=== PATIENT | female | born 1935 | race Caucasian/White ===

== ENCOUNTER 2021-06-10 17:05 | Emergency (ER) | payer MEDICARE, SELFPAY ==
--- NOTE | 2021-06-10 | ECG_ITS ---
Test Reason : CHEST TIGHTNESS Blood Pressure : / mmHG Vent. Rate : 069 BPM Atrial Rate : 069 BPM P-R Int : 162 ms QRS Dur : 128 ms QT Int : 450 ms P-R-T Axes : 060 005 115 degrees QTc Int : 482 ms Sinus rhythm with occasional Premature ventricular complexes Left bundle branch block Abnormal ECG No previous ECGs available Referred By: Generic ED Physician Electronically Signed By:Jose Patton
--- NOTE | ~2021-06-10 | XR_ITS ---
EXAMINATION: XR CHEST CLINICAL INFORMATION: Chest tightness COMPARISON: None TECHNIQUE: Frontal view of the chest was obtained. 6:33 PM FINDINGS: No significant abnormality is noted involving the heart, lungs, mediastinum, bony thorax or soft tissues. XR/XR chest 1V IMPRESSION: Unremarkable examination.
[2021-06-10 18:00] VITALS: BP 187/85; PULSE 72; RESP 18; TEMP 37.1; O2SAT 98; BMI 19.5
[2021-06-10 18:25] LABS: MANUAL DIFF FLAG NO
[2021-06-10 18:26] LABS: Basophils Percent Auto 0.2 % (0-2); Hematocrit 38.3 % (37.0-47.0); Hemoglobin 12.8 g/dl (12.0-16.0); Imm Gran Abs Auto 0.05 X10*3/uL (0.00-0.03); Imm Gran Pct Auto 0.6 % (0.0-0.4); Lymphocytes Absolute Auto 1.2 X10*3/uL (1.2-4.9); Lymphocytes Percent Auto 13.6 % (20-40); Mean Corpuscular HGB Conc 33.4 g/dl (31.0-35.0); Mean Corpuscular Hemoglobin 32.9 pg (27.0-33.0); Mean Corpuscular Volume 98.5 fL (80.0-98.0); Monocytes Absolute Auto 0.8 X10*3/uL (0.1-1.2); Monocytes Percent Auto 9.7 % (2-11); Neutrophils Absolute Auto 6.5 x10*3/uL (2.0-8.3); Neutrophils Percent Auto 75.9 % (45-73); Platelet Count 242 X10*3/uL (160-400); Red Blood Count 3.89 X10*6/uL (4.20-5.50); White Blood Count 8.6 X10*3/uL (4.8-10.8)
[2021-06-10 18:36] LABS: COVID-19 Test Positive (Negative)
[2021-06-10 18:40] LABS: Anion Gap 14 (12-20); Blood Urea Nitrogen 12 mg/dL (9-16); Calcium 9.6 mg/dL (8.4-10.2); Carbon Dioxide 24 mmol/L (22-29); Chloride 104 mmol/L (96-108); Creatinine Clr Calc Pharmacy 43.5; Estimated Glomerular Filt Rate > 60; Glucose Random 105 mg/dL (60-115); Potassium 4.5 mmol/L (3.3-5.1); Sodium 137 mmol/L (135-145)
--- NOTE | 2021-06-10 22:27 | ED.ASTHMA ---
HPI - Asthma General Chief Complaint: Asthma Stated Complaint: diff breathing Time Seen by Provider: 06/10/21 21:38 Source: patient Mode of arrival: ambulatory History of Present Illness HPI Narrative: This is an 85-year-old female with a history of asthma and MS who is currently living at [facility] and arrives with complaints of SOB for 1 week but denies any fever, chills, chest pain/palpitations. Patient states that there are a number of residence at [place] who have COVID but she states she tested negative as recently as yesterday. Related Data Allergies Allergy/AdvReac Type Severity Reaction Status Date / Time shellfish derived Allergy Intermediate Unknown Verified 06/10/21 18:00 Review of Systems Review of Systems: Pertinent positives and negatives as stated in HPI 10 point review of systems is otherwise negative. [facility] Past Medical History Source: nursing notes reviewed Medical History Asthma Social History Social History Advance Directives: No Advance Directives Information Provided: No Physical Exam Vital Signs: Vital Signs: Last Vital Signs Temp 98.7 F 06/10/21 18:00 Pulse 72 06/10/21 18:00 Resp 18 06/10/21 18:00 BP 187/85 H 06/10/21 18:00 Pulse Ox 98 06/10/21 18:00 BMI result Body Mass Index 19.5 VITAL SIGNS: Reviewed. GENERAL: Well developed, well nourished, in no acute distress. HEAD: Normocephalic/atraumatic EYES: PERRLA, EOMI EARS: Ext canals without abnormality OROPHARYNX: no oral lesions noted, posterior pharynx clear LUNGS: Normal breath sounds, no tachypnea, no wheeze/rhonchi/rales No adventitious sounds or accessory muscle use. SpO2<98> CARDIOVASCULAR: Regular rate and rhythm without noted murmurs, no JVD or lower extremity edema. ABDOMEN: Soft, non-tender, non-distended with bowel sounds. MUSCULOSKELETAL: No tenderness, deformities, or effusions noted on gross inspection. EXTREMITIES: No cyanosis, clubbing or edema. SKIN: Inspection of the skin reveals no rashes NEUROLOGIC: Alert and oriented x 4. Strength and sensation to light touch were grossly intact x 4. Course Course Course Narrative: 85-year-old female with history and clinical presentation consistent with COVID-19 infection, no clinical evidence of acute asthma exacerbation, patient is not experiencing tachypnea/tachycardia/nor is she febrile. Review of all investigations negative for acute findings other than patient being COVID-19 positive. She was informed that she would need isolate for 5 days and follow all state and Federal guidelines. MDM - Asthma Lab Data Result diagrams: 06/10/21 18:21 06/10/21 18:21 Labs: Lab Results 06/10/21 06/10/21 06/10/21 Range/Units 18:19 18:21 18:21 WBC 8.6 (4.8-10.8) X10*3/uL RBC 3.89 L (4.20-5.50) X10*6/uL Hgb 12.8 (12.0-16.0) g/dl Hct 38.3 (37.0-47.0) % MCV 98.5 H (80.0-98.0) fL MCH 32.9 (27.0-33.0) pg MCHC 33.4 (31.0-35.0) g/dl RDW 13.0 (11.0-16.0) % Plt Count 242 (160-400) X10*3/uL MPV 10.0 (9.4-12.3) fL Immature Gran % (Auto) 0.6 H (0.0-0.4) % Neut % (Auto) 75.9 H (45-73) % Lymph % (Auto) 13.6 L (20-40) % [place] % (Auto) 9.7 (2-11) % Eos % (Auto) 0.0 (0-4) % Baso % (Auto) 0.2 (0-2) % Lymph # (Auto) 1.2 (1.2-4.9) X10*3/uL [place] # (Auto) 0.8 (0.1-1.2) X10*3/uL Eos # (Auto) 0.0 (0.0-0.4) X10*3/uL Baso # (Auto) 0.0 (0.0-0.2) X10*3/uL Abs Immat Gran (auto) 0.05 H (0.00-0.03) X10*3/uL Absolute Neuts (auto) 6.5 (2.0-8.3) x10*3/uL Absolute Nucleated RBC 0.000 (0.0-0.012) X10*3/uL Nucleated RBC % (auto) 0.0 (0.0-0.2) /100WBC Sodium 137 (135-145) mmol/L Potassium 4.5 (3.3-5.1) mmol/L Chloride 104 (96-108) mmol/L Carbon Dioxide 24 (22-29) mmol/L Anion Gap 14 (12-20) BUN 12 (9-16) mg/dL Creatinine 0.77 (0.5-1.4) mg/dL Estim Creat Clear Calc 43.5 Estimated GFR > 60 Random Glucose 105 (60-115) mg/dL Calcium 9.6 (8.4-10.2) mg/dL COVID-19 (MAGUI) Positive A (Negative) COVID-19 Clin Com See Note Discharge Plan Discharge Clinical Impression: Breath shortness, Lab test positive for detection of COVID-19 virus, Asthma Patient Disposition: Home, Self-Care Instructions: COVID-19 (Coronavirus Disease 2019) (ED) Additional Instructions: 1. Resume all home medications. I recommend that you increase the frequency of your asthma medication for additional symptom relief of your COVID-19 symptoms. 2. You are required to isolate for 5 days as per current CDC guideline. Please follow all state and Federal guidelines. 3. Follow-up with your primary care provider via telemedicine appointment for re-evaluation in 1-2 days. Recommend [id number] Tylenol/ibuprofen as needed for any body aches or temperatures greater than 100.4. Return to the emergency room for any worsening of your symptoms.
[2021-06-10 22:34] VITALS: RESP 16
[2021-06-10 22:41] VITALS: BP 179/87; PULSE 74; RESP 16; O2SAT 97
[2021-06-10] MEDS: Albuterol Sulfate 90 MCG 8 GM INHALER 2 PUFF INHALE (22:44)
--- NOTE | 2021-06-10 22:55 | PC.NURSE ---
MD notified of BP. no new orders at this time. plan for discharge
== END 2021-06-10 22:57 | disposition home or self-care (01) ==
PROVIDERS: Emergency Provider Student in an Organized Health Care Education/Training Program
DX: U07.1 COVID-19 (principal); R07.89 Other chest pain; R06.02 Shortness of breath; J45.909 Unspecified asthma, uncomplicated; Z79.899 Other long term (current) drug therapy
CPT/HCPCS: 71045; 80048; 85025; 87635; 93005; 99284

== ENCOUNTER 2021-12-06 16:05 | Emergency (ER) | payer MEDICARE, SELFPAY ==
--- NOTE | ~2021-12-06 | XR_ITS ---
EXAMINATION: XR CHEST CLINICAL INFORMATION: Dyspnea. COMPARISON: Chest x-ray 06/10/2021 TECHNIQUE: Frontal portable view of the chest was obtained. 4:56 PM FINDINGS: No significant abnormality is noted involving the heart, lungs, mediastinum, bony thorax or soft tissues. XR/XR chest 1V IMPRESSION: Unremarkable examination.
--- NOTE | ~2021-12-06 | CT_ITS ---
EXAMINATION: CT head/brain wo IV con CLINICAL INFORMATION: Reason for Exam more confused COMPARISON: None. TECHNIQUE: Contiguous axial imaging was performed from the skull base to vertex without intravenous contrast. Sagittal and coronal reformatted images were obtained. This CT examination was performed using dose optimization techniques as appropriate, variously including the following: * Automated exposure control * Adjustment of mA and/or kV according to patient size (this includes techniques or standardized protocols for targeted exams where dose is matched to indication/reason for exam; i.e. extremities or head) Use of iterative reconstruction technique DLP: 653 mGy-cm FINDINGS: A 1.2 cm calcified soft tissue nodule in the right suboccipital scalp, which would be amenable to direct inspection. Patchy paranasal sinus mucosal thickening. Mastoid air cells are clear. Bilateral lens replacements. There is no evidence of acute intracranial hemorrhage or territorial infarction. No abnormal mass effect or midline shift is seen. Singh to white matter differentiation is well preserved. No extra-axial fluid collections are identified. No hydrocephalus. Proportional prominence of the ventricles and sulcal spaces is consistent with mild volume loss. Confluent periventricular and deep white matter hypoattenuation is consistent with advanced small vessel ischemic changes. CT/CT head/brain wo IV con IMPRESSION: 1. No acute intracranial abnormality. 2. Mild global parenchymal volume loss and advanced small vessel ischemic changes. 3. A 1.2 cm calcified soft tissue nodule in the right suboccipital scalp, which would be amenable to direct inspection.
--- NOTE | ~2021-12-06 | CT_ITS ---
EXAMINATION: CT ANGIOGRAM OF THE CHEST WITH AND WITHOUT CONTRAST (CT PULMONARY ANGIOGRAM FOR PE) CLINICAL INFORMATION: Reason for Exam chest pain, dyspnea, d-dimer elevated COMPARISON: None TECHNIQUE: Prior to contrast administration, noncontrast localization images were obtained. Subsequently, multidetector volumetric imaging was performed from the thoracic inlet to below the diaphragms following the administration of 65 mL Omnipaque 350 intravenous contrast. No contrast reaction reported Sagittal, coronal, and MIP oblique sagittal reformatted images were obtained on the CT workstation, uploaded to PACS, and reviewed. This CT examination was performed using dose optimization techniques as appropriate, variously including the following: *Automated exposure control *Adjustment of mA and/or kV according to patient size (this includes techniques or standardized protocols for targeted exams where dose is matched to indication/reason for exam; i.e. extremities or head) *Use of iterative reconstruction technique Total exam dose-length product 184 mGy-cm FINDINGS: QUALITY OF STUDY/CONTRAST BOLUS: Satisfactory. PULMONARY ARTERIES: No central or segmental pulmonary emboli. THORACIC AORTA: No aneurysm or dissection. LUNG: No acute airspace disease. No suspicious lung nodules. Calcified granuloma right lower lobe. PLEURA: No pleural effusion or pneumothorax. MEDIASTINUM: Heart size is normal. No pericardial effusion. No evidence of septal bowing or right heart strain. Calcifications of aortic valve. Small volume of coronary artery calcification. 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 This is not well seen on the CAT scan of 10/19/2017. On the MR abdomen study of 2018 this is a T1 dark and T2 bright pericardial lesion measuring 2.6 cm.. This did not demonstrate signal loss on out of phase imaging. Likely a pericardial cyst. CHEST WALL/AXILLA: No axillary or internal mammary lymphadenopathy. OSSEOUS STRUCTURES: No acute or suspicious osseous abnormality. UPPER ABDOMEN: Calcified granuloma in spleen and liver. Nonobstructive 5 mm stone mid pole left kidney. No reflux of contrast into the hepatic veins to suggest elevated right heart pressures. CT/CT angio chest PE protocol IMPRESSION: 1. No evidence of pulmonary embolism. 2. 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 This has density measurement of -31 Hounsfield units on today's exam. This has increased in size since MR study of 09/02/2017. This had signal characteristics of a pericardial cyst on the prior MR exam. VTE: negative.
[2021-12-06 16:18] VITALS: BP 151/88; PULSE 79; RESP 14; TEMP 36.9; O2SAT 97; BMI 21.2
--- NOTE | 2021-12-06 16:19 | ECG_ITS ---
Test Reason : CHEST PAIN Blood Pressure : / mmHG Vent. Rate : 075 BPM Atrial Rate : 075 BPM P-R Int : 166 ms QRS Dur : 126 ms QT Int : 402 ms P-R-T Axes : 053 -01 160 degrees QTc Int : 448 ms Sinus rhythm with frequent Premature ventricular complexes Left bundle branch block Abnormal ECG When compared with ECG of 10-JUN-2021 18:03, No significant change was found Referred By: Kirstin Guardado Electronically Signed By:LOUIE KHAN MD
--- NOTE | 2021-12-06 16:21 | ED.SOB ---
HPI - SOB/Dyspnea General Chief Complaint: Dyspnea Stated Complaint: sob Time Seen by Provider: 12/06/21 16:10 Source: patient and family Mode of arrival: EMS Limitations: other (cognitive impairment) History of Present Illness HPI Narrative: 86 yo female with hx of MS, asthma worsening cognitive impairment this week - c/o her asthma acting up. She tells me she isn't taking her nebs because her machine equipment broke but then she only takes vitamins. She states she has chest pain from a cough. She overall doesn't feel well because the ambulance drivers told her she had COVID (obviously) this isn't true. Cannot tell me much else other than her asthma acted up after taking flu shot. called daughter for collateral: does not have COVID, COVID vaccines x 4 (last one was 3 weeks) unsure if mom is taking prednisone could be on 20 or 30mg could be out of prescription. medications at home: spiriva escitalopram 10mg breo ellipta 25mcg 1 puff albuterol 2.5 albuterol INH mirtazapine 7.5mg QHS prednisone 2.5mg daily singulair 10mg daily Concern for safe discharge, mom isn't taking care of herself. Seems to have declined this week. House isn't as kept. Not taking medications. Related Data Home Medications Medication Instructions Recorded Confirmed albuterol sulfate 90 mcg/actuation 2 puff inhalation QID PRN Wheezing 12/06/21 12/06/21 aerosol inhaler fluticasone furoate 100 1 puff inhalation DAILY 12/06/21 12/06/21 mcg-vilanterol 25 mcg/dose inhalation powder (Breo Ellipta) ipratropium 0.5 mg-albuterol 3 mg 1 vial inhalation QID PRN Wheezing 12/06/21 12/06/21 (2.5 mg base)/3 mL nebulization soln mirtazapine 7.5 mg tablet 1 tab PO BEDTIME 12/06/21 12/06/21 montelukast 10 mg tablet 1 tab PO DAILY 12/06/21 12/06/21 prednisone 10 mg tablet 1 tab PO DAILY 12/06/21 12/06/21 tiotropium bromide 1.25 2 puff inhalation DAILY 12/06/21 12/06/21 mcg/actuation mist for inhalation (Spiriva Respimat) Allergies Allergy/AdvReac Type Severity Reaction Status Date / Time shellfish derived Allergy Intermediate Unknown Verified 06/10/21 18:00 Review of Systems Review of Systems: Constitutional : No Fever, No Chills ENT/Mouth : No Hoarseness, No sore throat, No Rhinorrhea Eyes: No Redness, No Discharge, No Vision Changes Cardiovascular : No Chest Pain, positive SOB, no Dyspnea on Exertion, No Edema Respiratory : positive Cough, No Sputum, no Wheezing, Gastrointestinal : No Nausea, No Vomiting, No Diarrhea, No abdominal Pain Genitourinary : No Dysuria, No Hematuria Musculoskeletal : No joint pain, No Myalgias Skin : No rash Neuro : No Weakness, No Numbness, No Headache Psych : No anxiety, depression Heme/Lymph: No Bruising, No Bleeding Endocrine : No Polyuria, No Polydipsia All other systems reviewed and are negative [facility] Past Medical History Source: obtained from family Medical History Asthma Cognitive impairment Multiple sclerosis Social History Social History (Updated 12/06/21 @ 16:22 by Kirstin Guardado DO) Patient Tobacco Use Status: Former Tobacco user Use of substances other than those prescribed or required for medical reasons: No Advance Directives: No Advance Directives Information Provided: No Physical Exam Vital Signs: Vital Signs: Last Vital Signs Temp 98.3 F 12/06/21 18:17 Pulse 76 12/06/21 18:17 Resp 16 12/06/21 18:17 BP 169/86 H 12/06/21 18:17 Pulse Ox 98 12/06/21 18:17 O2 Del Method 12/06/21 18:17 BMI result Body Mass Index 21.2 Appearance: Alert. Oriented X2 (person and place). No acute distress. Anxious Eyes: Pupils equal, round and reactive to light. ENT: Pharynx normal. Neck: Normal inspection. Neck supple. CVS: Normal heart rate and rhythm. Pulses normal. Respiratory: No respiratory distress. Breath sounds slightly diminished Abdomen: Soft and nontender. Skin: Skin warm and dry. Normal skin color. Normal skin turgor. Extremities: No lower extremity edema. No calf ttp Neuro: Oriented X 2. No motor deficit. No sensory deficit. Course Course Course Narrative: ddimer elevated CTA ordered UA negative, no pneumonia suspect WBC count from prednisone use at home Patient placed in physician observation at 851pm . The indication for observation is that the patient needs more time for PT/CM to help with safe discharge. At this time the patient is well developed well nourished, lungs clear, CV RRR, abd nontender, neuro is at baseline pericardial cyst is not the cause of her symptmos started on PO mediations to help with symptoms I did try to reach her daughter again about all results but no answer 853pm MDM - SOB/Dyspnea MDM Narrative Medical decision making narrative: 86 yo female with hx of MS, asthma worsening cognitive impairment this week - at this time she does not have COVID and does not seem to understand her medications or medical illness she is confused. Has stable VS and is making jokes. At this time will need labs, EKG, troponin x 2, CXR, SARS/FLU/COVID, neb treatment and IV steroids. ddimer. CT head for worsening cognitive impairment and UTI. Dispo per results and findings. Lab Data Result diagrams: 12/06/21 16:30 12/06/21 17:04 Labs: Lab Results 12/06/21 12/06/21 12/06/21 Range/Units 16:30 16:30 16:30 WBC 13.9 H (4.8-10.8) X10*3/uL RBC 3.90 L (4.20-5.50) X10*6/uL Hgb 12.3 (12.0-16.0) g/dl Hct 36.9 L (37.0-47.0) % MCV 94.6 (80.0-98.0) fL MCH 31.5 (27.0-33.0) pg MCHC 33.3 (31.0-35.0) g/dl RDW 12.9 (11.0-16.0) % Plt Count 264 (160-400) X10*3/uL MPV 9.6 (9.4-12.3) fL Immature Gran % (Auto) 1.0 H (0.0-0.4) % Neut % (Auto) 84.7 H (45-73) % Lymph % (Auto) 6.4 L (20-40) % [place] % (Auto) 7.7 (2-11) % Eos % (Auto) 0.1 (0-4) % Baso % (Auto) 0.1 (0-2) % Lymph # (Auto) 0.9 L (1.2-4.9) X10*3/uL [place] # (Auto) 1.1 (0.1-1.2) X10*3/uL Eos # (Auto) 0.0 (0.0-0.4) X10*3/uL Baso # (Auto) 0.0 (0.0-0.2) X10*3/uL Abs Immat Gran (auto) 0.14 H (0.00-0.03) X10*3/uL Absolute Neuts (auto) 11.8 H (2.0-8.3) x10*3/uL Absolute Nucleated RBC 0.000 (0.0-0.012) X10*3/uL Nucleated RBC % (auto) 0.0 (0.0-0.2) /100WBC D-Dimer High Sensitivty 553 NG/ML Sodium (135-145) mmol/L Potassium (3.3-5.1) mmol/L Chloride (96-108) mmol/L Carbon Dioxide (22-29) mmol/L Anion Gap (12-20) BUN (9-16) mg/dL Creatinine (0.5-1.4) mg/dL Estim Creat Clear Calc Estimated GFR Random Glucose (60-115) mg/dL Calcium (8.4-10.2) mg/dL Magnesium (1.6-2.6) mg/dL Total Bilirubin (0.0-1.0) mg/dL Direct Bilirubin (0.0-0.5) mg/dL AST (5-31) U/L ALT (0-31) U/L Alkaline Phosphatase (39-117) U/L Troponin I High Sens 11.1 (<3.5-17.0) ng/L Total Protein (6.5-8.0) g/dL Albumin (3.5-5.0) g/dL Urine Color Urine Appearance Urine pH (5.0-9.0) Ur Specific [place] (1.005-1.025) Urine Protein (Neg-Trace) mg/dL Urine Glucose (UA) (Negative) mg/dL Urine Ketones (Negative) mg/dL Urine Blood (Negative) Urine Nitrite (Negative) Ur Leukocyte Esterase (Negative) Urine RBC (0-2) /HPF Urine WBC (0-5) /HPF Ur Squamous Epith Cells (0-2) /HPF Urine Bacteria (None Seen) Hyaline Casts (0-2) /LPF Influenza Type A (PCR) (Negative) Influenza Type B (PCR) (Negative) RSV RNA Qual (PCR) (Negative) SARS-CoV-2 RNA (RT-PCR) (Negative) 12/06/21 12/06/21 12/06/21 Range/Units 16:42 17:04 17:04 WBC (4.8-10.8) X10*3/uL RBC (4.20-5.50) X10*6/uL Hgb (12.0-16.0) g/dl Hct (37.0-47.0) % MCV (80.0-98.0) fL MCH (27.0-33.0) pg MCHC (31.0-35.0) g/dl RDW (11.0-16.0) % Plt Count (160-400) X10*3/uL MPV (9.4-12.3) fL Immature Gran % (Auto) (0.0-0.4) % Neut % (Auto) (45-73) % Lymph % (Auto) (20-40) % [place] % (Auto) (2-11) % Eos % (Auto) (0-4) % Baso % (Auto) (0-2) % Lymph # (Auto) (1.2-4.9) X10*3/uL [place] # (Auto) (0.1-1.2) X10*3/uL Eos # (Auto) (0.0-0.4) X10*3/uL Baso # (Auto) (0.0-0.2) X10*3/uL Abs Immat Gran (auto) (0.00-0.03) X10*3/uL Absolute Neuts (auto) (2.0-8.3) x10*3/uL Absolute Nucleated RBC (0.0-0.012) X10*3/uL Nucleated RBC % (auto) (0.0-0.2) /100WBC D-Dimer High Sensitivty NG/ML Sodium 137 (135-145) mmol/L Potassium 4.4 (3.3-5.1) mmol/L Chloride 99 (96-108) mmol/L Carbon Dioxide 27 (22-29) mmol/L Anion Gap 15 (12-20) BUN 20 H D (9-16) mg/dL Creatinine 0.78 (0.5-1.4) mg/dL Estim Creat Clear Calc 46.3 Estimated GFR > 60 Random Glucose 98 (60-115) mg/dL Calcium 9.8 (8.4-10.2) mg/dL Magnesium 2.4 (1.6-2.6) mg/dL Total Bilirubin 0.7 (0.0-1.0) mg/dL Direct Bilirubin 0.2 (0.0-0.5) mg/dL AST 18 (5-31) U/L ALT 17 (0-31) U/L Alkaline Phosphatase 54 (39-117) U/L Troponin I High Sens (<3.5-17.0) ng/L Total Protein 6.7 (6.5-8.0) g/dL Albumin 3.9 (3.5-5.0) g/dL Urine Color Yellow Urine Appearance Clear Urine pH 7.5 (5.0-9.0) Ur Specific [place] <= 1.005 (1.005-1.025) Urine Protein Negative (Neg-Trace) mg/dL Urine Glucose (UA) Negative (Negative) mg/dL Urine Ketones Negative (Negative) mg/dL Urine Blood Trace H (Negative) Urine Nitrite Negative (Negative) Ur Leukocyte Esterase Negative (Negative) Urine RBC 3-5 H (0-2) /HPF Urine WBC 0-5 (0-5) /HPF Ur Squamous Epith Cells 0-2 (0-2) /HPF Urine Bacteria None Seen (None Seen) Hyaline Casts 0-2 (0-2) /LPF Influenza Type A (PCR) NEGATIVE (Negative) Influenza Type B (PCR) NEGATIVE (Negative) RSV RNA Qual (PCR) NEGATIVE (Negative) SARS-CoV-2 RNA (RT-PCR) NEGATIVE (Negative) ECG Data Attestation: I personally reviewed and interpreted this ECG as follows: ECG interpretation date: 12/06/21 ECG interpretation time: 16:41 Interpretation: Rate: 75 Rhythm: NSR with frequent PVCs [place]: left Normal P waves. Normal MIRA. LBBB ST T wave : inverted t waves I and aVL, no JHON qTC: normal prior studies: prior LBBB June 2021 The study has been interpreted contemporaneously by me. . Discharge Plan Discharge Clinical Impression: Cognitive impairment, Pericardial cyst Asthma with exacerbation Qualifiers: Asthma severity: moderate Asthma persistence: persistent Qualified Code(s): J45.41 - Moderate persistent asthma with (acute) exacerbation Patient Disposition: Still a Patient Prescriptions: No Action prednisone 10 mg tablet 1 tab PO DAILY ipratropium-albuterol 0.5 mg-3 mg(2.5 mg base)/3 mL solution for nebulization 1 vial inhalation QID PRN (Reason: Wheezing) montelukast 10 mg tablet 1 tab PO DAILY albuterol sulfate 90 mcg/actuation HFA aerosol inhaler 2 puff inhalation QID PRN (Reason: Wheezing) mirtazapine 7.5 mg tablet 1 tab PO BEDTIME fluticasone furoate-vilanterol [Breo Ellipta] 100-25 mcg/dose blister with device 1 puff inhalation DAILY Spiriva Respimat 1.25 mcg/actuation mist 2 puff inhalation DAILY
[2021-12-06 16:46] LABS: MANUAL DIFF FLAG NO
[2021-12-06 16:48] LABS: Basophils Percent Auto 0.1 % (0-2); Eosinophils Percent Auto 0.1 % (0-4); Hematocrit 36.9 % (37.0-47.0); Hemoglobin 12.3 g/dl (12.0-16.0); Imm Gran Abs Auto 0.14 X10*3/uL (0.00-0.03); Lymphocytes Absolute Auto 0.9 X10*3/uL (1.2-4.9); Lymphocytes Percent Auto 6.4 % (20-40); Mean Corpuscular HGB Conc 33.3 g/dl (31.0-35.0); Mean Corpuscular Hemoglobin 31.5 pg (27.0-33.0); Mean Corpuscular Volume 94.6 fL (80.0-98.0); Mean Platelet Volume 9.6 fL (9.4-12.3); Monocytes Absolute Auto 1.1 X10*3/uL (0.1-1.2); Monocytes Percent Auto 7.7 % (2-11); Neutrophils Absolute Auto 11.8 x10*3/uL (2.0-8.3); Neutrophils Percent Auto 84.7 % (45-73); Platelet Count 264 X10*3/uL (160-400); Red Cell Distribution Width 12.9 % (11.0-16.0); White Blood Count 13.9 X10*3/uL (4.8-10.8)
[2021-12-06 16:57] LABS: D Dimer High Sensitivity 553 NG/ML
[2021-12-06 17:07] VITALS: PULSE 74; RESP 15; O2SAT 97
[2021-12-06 17:07] LABS: Troponin-I High Sensitivity 11.1 ng/L (<3.5-17.0)
[2021-12-06] MEDS: Albuterol/Iprat 2.5/0.5MG 3 ML AMPUL.NEB INHALE (17:07)
[2021-12-06 17:13] LABS: Appearance Urine Clear; Color Urine Yellow; Glucose Urine UA Negative (Negative); Leukocyte Esterase Urine Negative (Negative); Nitrite Urine Negative (Negative); PH 7.5 (5.0-9.0); Specific Gravity - Urine <= 1.005 (1.005-1.025); UMIC TRIGGER UACC YES; Urine Blood Trace (Negative); Urine Ketones Negative (Negative); Urine Protein Negative (Neg-Trace)
[2021-12-06 17:18] LABS: Bacteria Urine None Seen (None Seen); Hyaline Casts Urine 0-2 /LPF (0-2); Squamous Epithelial Cell Urine 0-2 /HPF (0-2); WBC Urine 0-5 /HPF (0-5)
[2021-12-06 17:24] LABS: Influenza A PCR NEGATIVE (Negative); Influenza B PCR NEGATIVE (Negative); Resp Syncy Virus RNA Qual PCR NEGATIVE (Negative); SARS COV2 PCR INHOUSE NEGATIVE (Negative)
[2021-12-06 17:28] LABS: Alanine Aminotransferase 17 U/L (0-31); Albumin Level 3.9 g/dL (3.5-5.0); Alkaline Phosphatase 54 U/L (39-117); Anion Gap 15 (12-20); Aspartate Amino Transferase 18 U/L (5-31); Bilirubin Direct 0.2 mg/dL (0.0-0.5); Bilirubin Total 0.7 mg/dL (0.0-1.0); Blood Urea Nitrogen 20 mg/dL (9-16); Calcium 9.8 mg/dL (8.4-10.2); Carbon Dioxide 27 mmol/L (22-29); Chloride 99 mmol/L (96-108); Creatinine Clr Calc Pharmacy 46.3; Estimated Glomerular Filt Rate > 60; Glucose Random 98 mg/dL (60-115); Magnesium 2.4 mg/dL (1.6-2.6); Potassium 4.4 mmol/L (3.3-5.1); Sodium 137 mmol/L (135-145); Total Protein 6.7 g/dL (6.5-8.0)
--- NOTE | 2021-12-06 17:34 | PHA.MEDREC ---
Pharmacy Consult ? Medication Reconciliation Pharmacy has completed the medication reconciliation. Reports her only important medication is prednisone. After reviewing her claim history reports she does also take Singular and Mirtazepine. She reports she use to take Lexapro in the past and ran out but never followed up on refilled. Patient unsure of which inhaler she takes. Reports only using one but has recent fills for Breo and Spirivia. Silvia Dennis, ShiraD
[2021-12-06] MEDS: methylPREDNISolone Sod Succ 125 MG/2 ML VIAL 60 MG IVPUSH (18:03)
[2021-12-06 18:17] VITALS: BP 169/86; PULSE 76; RESP 16; TEMP 36.8; O2SAT 98
--- NOTE | 2021-12-06 18:23 | PC.NURSE ---
Pt able to ambulate to the bathroom with no assistance.
[2021-12-06] MEDS: iohexoL 350 MG/ML 100 ML INFUS..BTL IV (18:56)
[2021-12-06 21:08] VITALS: BP 153/82; PULSE 81; RESP 16; TEMP 36.8; O2SAT 98
--- NOTE | 2021-12-06 21:17 | PC.NURSE ---
PT GOT SOCIAL [employer]IA SR STRATEGY MANAGER INTO CRISIS GREEN ATTIRE ,PT HAD TUNA FISH SANDWICH AND 2 CARTON MILK AND PUDDING FOR SNACK ,PT BELONGINGS IS BEHIND HER BED ,PT HAS A CELL PHONE ON HER BED SIDE TABLE ,PT WAS GIVEN FRESH WATER ,RUI BLAKE CAMERA IN ROOM DUE TO PT WANDERING IN THE HALLS .
[2021-12-06] MEDS: Mirtazapine 7.5 MG TABLET PO (21:24)
[2021-12-06 21:54] VITALS: BP 137/69; PULSE 99; RESP 16; TEMP 36.7; O2SAT 95
--- NOTE | 2021-12-06 21:55 | PC.NURSE ---
2199 rounding done, pt went to bathroom ,void large amount and brush her teeth ,pt got tuck into bed warm blanket given ,call hayes within reach .
--- NOTE | 2021-12-07 00:09 | PC.NURSE ---
0000rounding made ,pt is asleep ,telle sitter binha in room ,call hayes within reach .
--- NOTE | 2021-12-07 00:42 | PC.NURSE ---
Pt sleeping in no apparent distress. Breaths are even and unlabored with equal chest rises. Will continue to monitor.
--- NOTE | 2021-12-07 02:19 | PC.NURSE ---
0200 ROUNDING DONE PT IS ASLEEP ,CALL BEL WITH IN REACH, AND TELLE SITTER ILIANA IN ROOM .
[2021-12-07 06:41] VITALS: BP 127/71; PULSE 68; RESP 16; O2SAT 96
[2021-12-07] MEDS: predniSONE 20 MG TABLET 40 MG PO (07:39)
--- NOTE | 2021-12-07 07:56 | PC.NURSE ---
PT SLEEPING IN NO ACUTE OUTWARD DISTRESS. RESP ARE EQUAL AND NONLABORED. SHE WAS MEDICATED CHARTED AND OFFERED BREAKFAST-TRAY LEFT AT THE BEDSIDE
--- NOTE | 2021-12-07 09:51 | PC.NURSE ---
Daughter Kay called this morning, can be reached at [phone]
--- NOTE | 2021-12-07 10:35 | MHC.CM.ED ---
Addendum entered by Chikis Mendez 12/07/21 10:43: Patient accepted by [facility]. Kay aware. Original Note: Received case management consult overnight from Dr Guardado. Patient came to the ER due to dyspnea. Work up essentially negative. There is a question of medication issues. Spoke with patient's daughter, Kay, via telephone at [phone]. Patient has been at [facility] since March 2021. Patient has a history of MS. Due to some intermitt confusion, patient will occassionally confuse her medications. Kay feels patient will benefit from some long-term to help with medication management and education. Kay agreeable to referral being broadcasted to see who can accept patient. Kay will be at the ER around 1115am to transport patient home. Patient, Kay, Shelbi ESTRADA and Mirlande MOHR aware. Continue to monitor for d/c needs.
[2021-12-07 10:38] VITALS: BP 142/64; PULSE 67; RESP 16; O2SAT 96
== END 2021-12-07 11:41 | disposition home or self-care (01) ==
PROVIDERS: Emergency Provider Emergency Medicine
DX: J45.41 Moderate persistent asthma with (acute) exacerbation (principal); R06.02 Shortness of breath; R51.9 Headache, unspecified; G31.84 Mild cognitive impairment of uncertain or unknown etiology; I31.8 Other specified diseases of pericardium; Z20.822 Contact with and (suspected) exposure to COVID-19; Z79.899 Other long term (current) drug therapy
CPT/HCPCS: 0241U; 36415; 70450; 71045; 71275; 80048; 80076; 81001; 83735; 84484; 85025; 85379; 93005; 94640; 96374; 99285; J2930; Q9967

== ENCOUNTER 2023-05-02 10:08 | Emergency (ER) | payer MEDICARE, SELFPAY ==
--- NOTE | ~2023-05-02 | CT_ITS ---
EXAMINATION: CT HEAD WITHOUT CONTRAST CLINICAL INFORMATION: Dizziness. COMPARISON: CT head from 12/06/2021. TECHNIQUE: Contiguous axial imaging was performed from the skull base to vertex without intravenous administration of contrast. This CT examination was performed using dose optimization techniques as appropriate, variously including the following: *Automated exposure control. *Adjustment of mA and/or kV according to patient size (this includes techniques or standardized protocols for targeted exams where dose is matched to indication/reason for exam; i.e. extremities or head). *Use of iterative reconstruction technique. DLP: 626 mGy-cm FINDINGS: There is no evidence of acute intracranial hemorrhage or edematous territorial infarction. Singh-white matter differentiation is preserved. Scattered and partially confluent hypoattenuation in the periventricular and deep white matter are consistent with moderate to extensive microangiopathy. Proportional prominence of the ventricles and sulcal spaces without evidence of obstructive hydrocephalus. The posterior callosal angle measures 90 degrees. No abnormal mass effect or midline shift. No extra-axial fluid collections. Calcific atherosclerotic disease of the intracranial internal carotid arteries. No hyperdense vessel sign. No acute soft tissue or osseous abnormalities. 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 Mild mucosal thickening of the paranasal sinuses. The mastoid air cells and middle ear cavities are clear. 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 Bilateral lens extractions. CT/CT head/brain wo IV con IMPRESSION: 1. No evidence of acute intracranial hemorrhage or edematous territorial infarction. 2. Moderate to extensive underlying microangiopathy and generalized cerebral volume loss.
--- NOTE | ~2023-05-02 | XR_ITS ---
EXAMINATION: XR CHEST CLINICAL INFORMATION: Weakness COMPARISON: Chest radiograph from 12/06/2021, CT angiography chest from 12/06/2021 TECHNIQUE: Frontal view of the chest was obtained. FINDINGS: Calcified granuloma right lung base. Chronic interstitial lung markings. No pneumothorax. Trachea is midline. Cardiac mediastinal silhouette is not enlarged. Aorta demonstrates a sclerotic calcifications. No large pleural effusion. Dextrocurvature of the midthoracic spine with multilevel degenerative changes. Chronic appearing fracture deformity of the proximal humeral diaphysis. Soft tissues are unremarkable. XR/XR chest 1V IMPRESSION: 1. Calcified granuloma right lung base. 2. Chronic interstitial lung markings.
[2023-05-02 10:20] VITALS: BP 110/66; BP 160/70; PULSE 58; PULSE 60; RESP 16; TEMP 36.2; O2SAT 99; BMI 23.0
--- NOTE | 2023-05-02 10:24 | ECG_ITS ---
Test Reason : DIZZINESS Blood Pressure : / mmHG Vent. Rate : 056 BPM Atrial Rate : 056 BPM P-R Int : 182 ms QRS Dur : 138 ms QT Int : 452 ms P-R-T Axes : 004 024 190 degrees QTc Int : 436 ms Sinus bradycardia Left bundle branch block Abnormal ECG When compared with ECG of 06-DEC-2021 16:35, Premature ventricular complexes are no longer Present Referred By: Rach Miller Electronically Signed By:Jose Patton
--- NOTE | 2023-05-02 10:24 | ED.GENADULT ---
HPI - General Adult General Chief complaint: Dizziness Stated complaint: WEAKNESS DIZZY Time Seen by Provider: 05/02/23 10:24 Source: patient, family (patient's daughter) and EMS Mode of arrival: EMS Limitations: no limitations History of Present Illness HPI narrative: Patient is an 87 year old assigned female at with a history of asthma, MS, and cognitive impairment presenting to the emergency department today after an episode of near syncope and lightheadedness. Patient states that this morning she felt lightheaded and like she was going to pass out. Patient denies any dizziness, abdominal pain, nausea, vomiting, fever, chills, blurry vision, double vision, loss of vision, chest pain, difficulty breathing, shortness of breath, back pain, night sweats, pain with urination, increased urinary frequency, increased urinary urgency, blood in her urine or stool, syncope or a near syncopal episode, bowel incontinence, bladder incontinence, bowel retention, bladder retention, or any other complaints at this time. Relieving factors: none Exacerbating factors: none Associated symptoms: confusion (chronic for the patient) and weakness Treatments prior to arrival: none Related Data Home Medications Medication Instructions Recorded Confirmed albuterol sulfate 90 mcg/actuation 2 puff inhalation QID PRN Wheezing 12/06/21 12/06/21 aerosol inhaler fluticasone furoate 100 1 puff inhalation DAILY 12/06/21 12/06/21 mcg-vilanterol 25 mcg/dose inhalation powder (Breo Ellipta) ipratropium 0.5 mg-albuterol 3 mg 1 vial inhalation QID PRN Wheezing 12/06/21 12/06/21 (2.5 mg base)/3 mL nebulization soln mirtazapine 7.5 mg tablet 1 tab PO BEDTIME 12/06/21 12/06/21 montelukast 10 mg tablet 1 tab PO DAILY 12/06/21 12/06/21 prednisone 10 mg tablet 1 tab PO DAILY 12/06/21 12/06/21 tiotropium bromide 1.25 2 puff inhalation DAILY 12/06/21 12/06/21 mcg/actuation mist for inhalation (Spiriva Respimat) Previous Rx's Medication Instructions Recorded albuterol sulfate 90 mcg/actuation 2 puff inhalation Q4-6H PRN 12/07/21 aerosol inhaler shortness of breath or wheezing #6.7 grams prednisone 20 mg tablet 40 mg (2 x 20 mg) PO DAILY 3 days 12/07/21 #6 tabs Allergies Allergy/AdvReac Type Severity Reaction Status Date / Time shellfish derived Allergy Intermediate Unknown Verified 06/10/21 18:00 Review of Systems Constitutional: Constitutional: Reports no additional constitutional complaints, Denies chills, Denies fever(s) and Denies night sweats Eyes: Eyes: Reports no additional eye complaints, Denies blurry vision, Denies change in vision, Denies diplopia, Denies eye discharge, Denies loss of vision and Denies eye pain ENT: Denies dizziness Cardiovascular: Cardiovascular: Reports no additional cardiovascular complaints, Denies chest pain, Denies lightheadedness, Denies Loss of Consciousness and Denies dyspnea Respiratory: Respiratory: Reports no additional respiratory complaints and Denies dyspnea Gastrointestinal: Gastrointestinal: Reports no additional gastrointestinal complaints, Denies abdominal pain, Denies melena, Denies hematochezia, Denies change in bowel habits and Denies change in stool character Genitourinary: Genitourinary: Denies hematuria, Denies urinary frequency, Denies dysuria, Denies urinary incontinence, Denies urinary hesitancy and Denies urinary urgency Musculoskeletal: Musculoskeletal: Reports no additional musculoskeletal complaints, Denies numbness and Denies tingling Neurologic: Reports confusion (chronic for the patient), Denies dizziness, Denies loss of vision, Denies numbness and Denies tingling Comments: near syncopal episode Psychiatric: Psychiatric: Reports no additional psychiatric complaints and Reports confusion (chronic for the patient) Endocrine: Endocrine: Reports no additional endocrine complaints Hematologic/Lymphatic: Hematologic/Lymphatic: Reports no additional hematologic/lymphatic complaints Allergic/Immunologic: Allergic/Immunologic: Reports no additional allergic/immunologic complaints [facility] Past Medical History Attestation statement: The following information was validated with the patient. (all information validated with the patient's daughter) Source: old records reviewed, obtained from family (patient's daughter provided additional history and confirmed the history provided by the patient) and nursing notes reviewed Medical History Cognitive impairment Multiple sclerosis Asthma Social History Social History Patient Tobacco Use Status: Former Tobacco user Smoked in Last 30 Days: No Use of substances other than those prescribed or required for medical reasons: No Advance Directives: No Physical Exam ED Vital Signs: Vital Signs - 24 hr 05/02/23 10:20 05/02/23 13:09 05/02/23 13:09 Temperature 97.2 F Pulse Rate 58 73 75 Respiratory Rate 16 Blood Pressure 160/70 H 119/64 129/71 Pulse Oximetry 99 Oxygen Delivery Method Room Air 05/02/23 13:09 05/02/23 13:16 Temperature 97.9 F Pulse Rate 83 83 Respiratory Rate 16 Blood Pressure 127/69 127/67 Pulse Oximetry 99 Oxygen Delivery Method Room Air BMI result Body Mass Index 23.0 Const General: confusion (chronic for the patient) Nutritional Appearance: well nourished Orientation/consciousness: oriented to person, oriented to place and confusion (chronic for the patient) Limitations: no limitations HENMT Head: Yes normal to inspection and Yes atraumatic Ears: hearing grossly normal bilaterally and external ears normal General nose exam: Normal external nose present, no nasal discharge noted and no epistaxis Face and sinus: Yes normal facial exam, No abrasion and No laceration Mouth: Normal oral and palatal mucosa present, no drooling and no muffled voice Eyes General: appearance normal, both eyes and all related structures Periorbital: periorbital findings normal Eyelids: Yes eyelids normal Conjunctivae: conjunctivae normal Pupils: Equal, round and reactive pupils present EOM: EOMs intact bilaterally Neck Neck: Yes normal visual inspection, Yes full ROM and Yes no lymphadenopathy Chest Chest palpation & inspection: normal inspection of the chest Resp Effort & Inspection: normal respiratory effort and able to speak in complete sentences GI Inspection: Yes normal to inspection Neuro General: oriented to person, oriented to place and confusion (chronic for the patient) Cranial nerves: Yes Equal, round and reactive pupils present Cognition (Neuro): normal cognition Motor exam (neuro): 5/5 motor strength present throughout Sensory Exam: Normal double simultaneous stimulation for sensation Coordination: [id number] test normal Extrem General: Yes normal to inspection, Yes full ROM and Yes capillary refill normal Psych Appearance: grossly normal Mental Status: mental status grossly normal Affect: normal affect Attitude: cooperative Thought process: Normal thought process present Thought content: Normal thought content present Insight: Good insight present (Psych) Medical Decision Making Medical Decision Making MDM Narrative: Patient is an 87 year old assigned female at with a history of asthma, MS, and cognitive impairment presenting to the emergency department today after an episode of lightheadedness and a near syncopal episode. Patient's physical exam was unremarkable. Patient's blood work was unremarkable. Patient's urine showed no acute process. Patient's EKG was unremarkable. Patient's chest x-ray and head CT showed no acute process. I explained my physical exam findings as well as all test results to the patient and the patient's daughter. I answered all questions asked by the patient and the patient's daughter. I stressed the importance of the patient taking her medication as prescribed. I stressed the importance of the patient following up with her primary care provider. I stressed the importance of the patient returning to the emergency department immediately if her symptoms were to worsen or if she were to develop any dizziness, shortness of breath, difficulty breathing, chest pain, blurry vision, loss of vision, nausea, vomiting, abdominal pain, fever, chills, back pain, or any other complaints. Patient verbalized agreement and understanding with this treatment plan and discharge. Differential Diagnosis Differential Diagnoses: The differential diagnosis associated with the presentation includes Lightheadedness Near syncopal episode Admission/Observation Consideration of admission/observation: Escalation of care including admission/observation considered Patient would have been admitted to the hospital had her work up had any findings where hospital admission was appropriate and her clinical presentation warranted hospital admission. Lab Data [facility] Lab Attestation statement: I reviewed the patient's lab results. My interpretation of these results are in the [facility] Rationale portion of this note. 05/02/23 12:05 05/02/23 12:05 Labs: Lab Results 05/02/23 05/02/23 05/02/23 Range/Units 11:03 12:05 12:13 WBC 9.8 (4.8-10.8) X10*3/uL RBC 4.34 (4.20-5.50) X10*6/uL Hgb 13.6 (12.0-16.0) g/dl Hct 39.9 (37.0-47.0) % MCV 91.9 (80.0-98.0) fL MCH 31.3 (27.0-33.0) pg MCHC 34.1 (31.0-35.0) g/dl RDW 13.6 (11.0-16.0) % Plt Count 265 (160-400) X10*3/uL MPV 9.7 (9.4-12.3) fL Immature Gran % (Auto) 0.4 (0.0-0.4) % Neut % (Auto) 83.2 H (45-73) % Lymph % (Auto) 10.1 L (20-40) % [place] % (Auto) 5.4 (2-11) % Eos % (Auto) 0.4 (0-4) % Baso % (Auto) 0.5 (0-2) % Lymph # (Auto) 1.0 L (1.2-4.9) X10*3/uL [place] # (Auto) 0.5 (0.1-1.2) X10*3/uL Eos # (Auto) 0.0 (0.0-0.4) X10*3/uL Baso # (Auto) 0.1 (0.0-0.2) X10*3/uL Abs Immat Gran (auto) 0.04 H (0.00-0.03) X10*3/uL Absolute Neuts (auto) 8.1 (2.0-8.3) x10*3/uL Absolute Nucleated RBC 0.000 (0.0-0.012) X10*3/uL Nucleated RBC % (auto) 0.0 (0.0-0.2) /100WBC Sodium 136 (135-145) mmol/L Potassium 3.2 L (3.3-5.1) mmol/L Chloride 102 (96-108) mmol/L Carbon Dioxide 22 (22-29) mmol/L Anion Gap 15 (12-20) BUN 13 (9-16) mg/dL Creatinine 0.78 (0.5-1.4) mg/dL Estim Creat Clear Calc 43.6 Estimated GFR > 60 Random Glucose 151 H (60-115) mg/dL Calcium 9.7 (8.4-10.2) mg/dL Magnesium 2.0 (1.6-2.6) mg/dL Total Bilirubin 0.8 (0.0-1.0) mg/dL AST 20 (5-31) U/L ALT 13 (0-31) U/L Alkaline Phosphatase 54 (39-117) U/L Troponin I High Sens 2.7 (<3.5-17.0) ng/L B-Natriuretic Peptide 51 (<100) pg/mL Total Protein 6.9 (6.5-8.0) g/dL Albumin 3.9 (3.5-5.0) g/dL Urine Color Yellow Urine Appearance Cloudy Urine pH 7.5 (5.0-9.0) Ur Specific [place] 1.015 (1.005-1.025) Urine Protein Trace (Neg-Trace) mg/dL Urine Glucose (UA) Negative (Negative) mg/dL Urine Ketones Trace (Negative) mg/dL Urine Blood Negative (Negative) Urine Nitrite Negative (Negative) Ur Leukocyte Esterase Small (1+) H (Negative) Urine RBC 0-2 (0-2) /HPF Urine WBC 0-5 (0-5) /HPF Ur Squamous Epith Cells 3-5 (0-2) /HPF Urine Bacteria None Seen (None Seen) Hyaline Casts 0-2 (0-2) /LPF Influenza Type A (PCR) NEGATIVE (Negative) Influenza Type B (PCR) NEGATIVE (Negative) RSV RNA Qual (PCR) NEGATIVE (Negative) SARS-CoV-2 RNA (RT-PCR) NEGATIVE (Negative) Independent Interpretation I performed an independent interpretation of an: EKG, Plain X-Ray and CT Scan Interpretation: My interpretation is in agreement with the radiologist's impression of these imaging studies. EXAMINATION: CT HEAD WITHOUT CONTRAST CLINICAL INFORMATION: Dizziness. COMPARISON: CT head from 12/06/2021. TECHNIQUE: Contiguous axial imaging was performed from the skull base to vertex without intravenous administration of contrast. This CT examination was performed using dose optimization techniques as appropriate, variously including the following: *Automated exposure control. *Adjustment of mA and/or kV according to patient size (this includes techniques or standardized protocols for targeted exams where dose is matched to indication/reason for exam; i.e. extremities or head). *Use of iterative reconstruction technique. DLP: 626 mGy-cm FINDINGS: There is no evidence of acute intracranial hemorrhage or edematous territorial infarction. Singh-white matter differentiation is preserved. Scattered and partially confluent hypoattenuation in the periventricular and deep white matter are consistent with moderate to extensive microangiopathy. Proportional prominence of the ventricles and sulcal spaces without evidence of obstructive hydrocephalus. The posterior callosal angle measures 90 degrees. No abnormal mass effect or midline shift. No extra-axial fluid collections. Calcific atherosclerotic disease of the intracranial internal carotid arteries. No hyperdense vessel sign. No acute soft tissue or osseous abnormalities. 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 Mild mucosal thickening of the paranasal sinuses. The mastoid air cells and middle ear cavities are clear. 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 Bilateral lens extractions. CT/CT head/brain wo IV con IMPRESSION: 1. No evidence of acute intracranial hemorrhage or edematous territorial infarction. 2. Moderate to extensive underlying microangiopathy and generalized cerebral volume loss. Dictated By: Indra Rodas DO Signed By: Electronically signed by Indra Rodas DO 05/02/23 1125 EXAMINATION: XR CHEST CLINICAL INFORMATION: Weakness COMPARISON: Chest radiograph from 12/06/2021, CT angiography chest from 12/06/2021 TECHNIQUE: Frontal view of the chest was obtained. FINDINGS: Calcified granuloma right lung base. Chronic interstitial lung markings. No pneumothorax. Trachea is midline. Cardiac mediastinal silhouette is not enlarged. Aorta demonstrates a sclerotic calcifications. No large pleural effusion. Dextrocurvature of the midthoracic spine with multilevel degenerative changes. Chronic appearing fracture deformity of the proximal humeral diaphysis. Soft tissues are unremarkable. XR/XR chest 1V IMPRESSION: 1. Calcified granuloma right lung base. 2. Chronic interstitial lung markings. Dictated By: Brooke Chance MD Signed By: Electronically signed by Brooke Chance MD 05/02/23 1226 Vent. Rate: 056 BPM Atrial Rate: 056 BPM P-R Int: 182 ms QRS Dur: 138 ms QT Int: 452 ms P-R-T Axes: 004 024 190 degrees QTc Int: 436 ms Sinus bradycardia Left bundle branch block Abnormal ECG When compared with ECG of 06-DEC-2021 16:35, Premature ventricular complexes are no longer Present DD/ [id number] Radiology Impression Discussion of test interpretation with radiology: I have reviewed the radiologist's reading. Independent Historian Clinical information obtained from an independent historian. History obtained from or confirmed by: EMS (EMS provided additional history and confirmed the history provided by the patient.) and Other (patient's daughter provided additional history and confirmed the history provided by the patient.) Discharge Plan Discharge Clinical Impression: Light-headedness Patient Disposition: Home, Self-Care Instructions: Lightheadedness (ED) Additional Instructions: Follow up with your primary care provider. Return to the emergency department immediately if your symptoms worsen or if you develop any dizziness, shortness of breath, difficulty breathing, chest pain, blurry vision, loss of vision, nausea, vomiting, abdominal pain, fever, chills, back pain, or any other complaints. Prescriptions: No Action prednisone 10 mg tablet 1 tab PO DAILY ipratropium-albuterol 0.5 mg-3 mg(2.5 mg base)/3 mL solution for nebulization 1 vial inhalation QID PRN (Reason: Wheezing) montelukast 10 mg tablet 1 tab PO DAILY albuterol sulfate 90 mcg/actuation HFA aerosol inhaler 2 puff inhalation QID PRN (Reason: Wheezing) mirtazapine 7.5 mg tablet 1 tab PO BEDTIME fluticasone furoate-vilanterol [Breo Ellipta] 100-25 mcg/dose blister with device 1 puff inhalation DAILY Spiriva Respimat 1.25 mcg/actuation mist 2 puff inhalation DAILY prednisone 20 mg tablet 40 mg PO DAILY 3 Days Qty: 6 0RF albuterol sulfate 90 mcg/actuation HFA aerosol inhaler 2 puff inhalation Q4-6H PRN (Reason: shortness of breath or wheezing) Qty: 6.7 0RF Referrals: Nidhi Butler MD [Primary Care Provider] - Interventions: ED Discharge Assessment Last Done: 05/02/23 13:16 Discharge Date/Time: 05/02/23 13:17 Print Language: Marshallese
[2023-05-02 12:12] LABS: MANUAL DIFF FLAG NO
[2023-05-02 12:13] LABS: Basophils Absolute Auto 0.1 X10*3/uL (0.0-0.2); Basophils Percent Auto 0.5 % (0-2); Eosinophils Percent Auto 0.4 % (0-4); Hematocrit 39.9 % (37.0-47.0); Hemoglobin 13.6 g/dl (12.0-16.0); Imm Gran Abs Auto 0.04 X10*3/uL (0.00-0.03); Imm Gran Pct Auto 0.4 % (0.0-0.4); Lymphocytes Percent Auto 10.1 % (20-40); Mean Corpuscular HGB Conc 34.1 g/dl (31.0-35.0); Mean Corpuscular Hemoglobin 31.3 pg (27.0-33.0); Mean Corpuscular Volume 91.9 fL (80.0-98.0); Mean Platelet Volume 9.7 fL (9.4-12.3); Monocytes Absolute Auto 0.5 X10*3/uL (0.1-1.2); Monocytes Percent Auto 5.4 % (2-11); Neutrophils Absolute Auto 8.1 x10*3/uL (2.0-8.3); Neutrophils Percent Auto 83.2 % (45-73); Platelet Count 265 X10*3/uL (160-400); Red Blood Count 4.34 X10*6/uL (4.20-5.50); Red Cell Distribution Width 13.6 % (11.0-16.0); White Blood Count 9.8 X10*3/uL (4.8-10.8)
[2023-05-02 12:21] LABS: Appearance Urine Cloudy; Color Urine Yellow; Glucose Urine UA Negative (Negative); Leukocyte Esterase Urine Small (1+) (Negative); Nitrite Urine Negative (Negative); PH 7.5 (5.0-9.0); Specific Gravity - Urine 1.015 (1.005-1.025); UMIC TRIGGER UACC YES; Urine Blood Negative (Negative); Urine Ketones Trace mg/dL (Negative); Urine Protein Trace mg/dL (Neg-Trace)
[2023-05-02 12:27] LABS: Bacteria Urine None Seen (None Seen); Hyaline Casts Urine 0-2 /LPF (0-2); RBC Urine 0-2 /HPF (0-2); UACC Culture Trigger YES; WBC Urine 0-5 /HPF (0-5)
[2023-05-02 12:30] LABS: Influenza A PCR NEGATIVE (Negative); Influenza B PCR NEGATIVE (Negative); Resp Syncy Virus RNA Qual PCR NEGATIVE (Negative); SARS COV2 PCR INHOUSE NEGATIVE (Negative)
[2023-05-02 12:36] LABS: Alanine Aminotransferase 13 U/L (0-31); Albumin Level 3.9 g/dL (3.5-5.0); Alkaline Phosphatase 54 U/L (39-117); Anion Gap 15 (12-20); Aspartate Amino Transferase 20 U/L (5-31); Bilirubin Total 0.8 mg/dL (0.0-1.0); Blood Urea Nitrogen 13 mg/dL (9-16); Calcium 9.7 mg/dL (8.4-10.2); Carbon Dioxide 22 mmol/L (22-29); Chloride 102 mmol/L (96-108); Creatinine Clr Calc Pharmacy 43.6; Estimated Glomerular Filt Rate > 60; Glucose Random 151 mg/dL (60-115); Potassium 3.2 mmol/L (3.3-5.1); Sodium 136 mmol/L (135-145); Total Protein 6.9 g/dL (6.5-8.0)
[2023-05-02 12:38] LABS: B Type Natriuretic Peptide 51 pg/mL (<100)
[2023-05-02 12:44] LABS: Troponin-I High Sensitivity 2.7 ng/L (<3.5-17.0)
[2023-05-02 13:09] VITALS: BP 119/64; BP 127/69; BP 129/71; PULSE 73; PULSE 75; PULSE 83
[2023-05-02 13:16] VITALS: BP 127/67; PULSE 83; RESP 16; TEMP 36.6; O2SAT 99
== END 2023-05-02 13:17 | disposition home or self-care (01) ==
PROVIDERS: Physician Assistant Medical; Emergency Provider Emergency Medicine; PCP Internal Medicine
DX: R42 Dizziness and giddiness (principal); G35 Multiple sclerosis; J45.909 Unspecified asthma, uncomplicated; Z11.52 Encounter for screening for COVID-19; Z20.828 Contact with and (suspected) exposure to other viral communicable diseases
CPT/HCPCS: 0241U; 70450; 71045; 80053; 81001; 83735; 83880; 84484; 85025; 87086; 93005; 99284

== ENCOUNTER → 2023-05-02 10:24 | Outpatient (BNV) | payer MEDICARE, SELFPAY | PROVIDERS: Emergency Provider Emergency Medicine; PCP Internal Medicine; Visit Provider Internal Medicine Cardiovascular Disease | DX: R42 Dizziness and giddiness (principal) | CPT/HCPCS: 93010 ==